=== PATIENT | female | born 1935 | race Caucasian/White ===

== ENCOUNTER 2022-07-25 15:23 | Inpatient (IN) | payer MEDICARE, OTHER ==
[~2022-07-25] VITALS: Ht 162.6 cm; Wt 68.0 kg
[~2022-07-25 15:23] MED LIST: HYDR-507 PO; METO-356 PO; SIMV-49 PO; ZOLP10TA2 PO
--- NOTE | 2022-07-25 15:42 | NUR ---
PT CAN NOT PROVIDE ANY INFORMATION ABOUT HER HOME MEDICATION AND DOSAGES.
[2022-07-25] MEDS ORDERED: IV NORMAL SALINE 1000 ML BAG IV ONE ×2 (15:45)
[2022-07-25 15:57] LABS: MEAN CORPUSCULAR HEMOGLOBIN 32.2 uug (24.7-32.8); PLATELET COUNT (AUTO) 292 K/uL (179-408)
[2022-07-25 16:04] LABS: CARBON DIOXIDE 27 mmol/L (21-32); CHLORIDE 102 mmol/L (98-107); CREATININE 1.6 mg/dL (0.6-1.3); GLUCOSE 96 mg/dL (74-106); POTASSIUM 4.9 mmol/L (3.5-5.1); UREA NITROGEN, BLOOD 24 mg/dL (7-18)
[2022-07-25 16:16] LABS: MAGNESIUM 2.2 mg/dL (1.8-2.4)
--- NOTE | 2022-07-25 19:25 | NUR ---
change of shift report from Anjali BEAULIEU
--- NOTE | 2022-07-25 20:20 | NUR ---
called for bed, patient will be transfered to TELE room 316
--- NOTE | 2022-07-25 20:39 | NUR ---
patient is able to walk to the restroom with steady gait
[2022-07-25] MEDS ORDERED: IV NS 1000 ML 1,000 ML IV PRN (20:45)
[2022-07-25] MEDS ORDERED: ACETAMINOPHEN 325 MG TABLET PO PRN (20:45)
[2022-07-25] MEDS ORDERED: MAGNESIUM HYDROXIDE 30 ML LIQUID UDC PO PRN (20:45)
[2022-07-25] MEDS ORDERED: REMEDY ESSENTIAL ZINC PASTE 113 GM TP PRN (20:45)
[2022-07-25] MEDS ORDERED: ONDANSETRON 4 MG/2 ML VIAL IV PRN (20:45)
--- NOTE | 2022-07-25 20:54 | NUR ---
report given to Nataliia BEAULIEU
--- NOTE | 2022-07-25 21:37 | NUR ---
Pt. admitted to TELE room 316 , under care of Bong STUDY COORDINATOR [employer] List completed Nataliia BEAULIEU aware of patient's arrival
--- NOTE | 2022-07-25 22:00 | NUR ---
Admitted to Telemetry with diagnosis of Syncope. AAO x 3. On room air. Noted a red bump on the back of the head. Denies any pain or discomfort. Ambulatory. Skin is intact. IV site on L AC 20 g intact and patent. Routine admission done. All needs attended. Call light within reach. Left bed in the lowest position. Safety precautions observed. Addendum: 07/26/22 at 0607 by WALLY WOODS RN SR on Tele during admission changed to Afib. aware.
[2022-07-25 22:20] VITALS: BP 177/78
[2022-07-26] VITALS: BP 176/64
[2022-07-26] MEDS ORDERED: hydrALAZINE HCL 20 MG/1 ML VIAL IV PRN
[2022-07-26 04:00] VITALS: BP 144/69
[2022-07-26 07:28] LABS: HEMATOCRIT 31.9 % (31.2-41.9); MEAN CORPUSCULAR HEMOGLOBIN 32.3 uug (24.7-32.8); MEAN CORPUSCULAR VOLUME 96.9 fL (75.5-95.3); PLATELET COUNT (AUTO) 166 K/uL (179-408)
[2022-07-26 07:36] LABS: CREATININE 1.3 mg/dL (0.6-1.3); MAGNESIUM 2.2 mg/dL (1.8-2.4); PHOSPHOROUS 3.1 mg/dL (2.5-4.9); POTASSIUM 4.2 mmol/L (3.5-5.1)
[2022-07-26] MEDS ORDERED: ENOXAPARIN SODIUM 30 MG/0.3 ML DISP.SYRIN SUBCUT SCH (09:00)
[2022-07-26 09:29] VITALS: BP_SYST 128; BP_SYST 135; BP_DIAS 65; BP_DIAS 66; BP_DIAS 87
[2022-07-26] MEDS ORDERED: FLUO20CA42 PO (10:07)
[2022-07-26] MEDS ORDERED: ARIP2TAB3 PO (10:07)
[2022-07-26] MEDS ORDERED: LISI10TA29 PO (10:07)
[2022-07-26] MEDS ORDERED: METO-357 PO (10:07)
[2022-07-26] MEDS ORDERED: ALLO100T PO (10:07)
[2022-07-26] MEDS ORDERED: ATOR20TA PO (10:52)
[2022-07-26 11:08] VITALS: BP 107/58
--- NOTE | 2022-07-26 12:04 | NUR ---
PT WILL BE DISCHARGE TODAY. FAMILY NOTIFIED. SON ASK FOR INFO REGARDING SNF/LONG TERM PLACEMENT, REFER SON TO CM. WILL F/U
--- NOTE | 2022-07-26 14:08 | NUR ---
PT WILL GO TO [facility]. GAVE REPORT TO LORENA BEAULIEU. 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
--- NOTE | 2022-07-26 16:33 | NUR ---
PT IS DISCHARGE. PT IS GOING TO [facility]. PT IS AMBULATORY. NO SOB OR DIZZINESS NOTED. 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 ALL BELONGINGS ACCOUNTED FOR. IV ACCESS REMOVE.
== END 2022-07-26 16:32 | DRG 640 ==
LOC: ER 15:23 → EDBD 15:23 → TELE3 19:00 → MERGE 19:00
PROVIDERS: ADMIT Nurse Practitioner Acute Care; ATTEND Nurse Practitioner Acute Care
DX: E86.0 Dehydration (principal); N17.0 Acute kidney failure with tubular necrosis; E78.5 Hyperlipidemia, unspecified; D64.9 Anemia, unspecified; Z20.822 Contact with and (suspected) exposure to COVID-19; W19.XXXA Unspecified fall, initial encounter; Y93.9 Activity, unspecified; Y92.009 Unspecified place in unspecified non-institutional (private) residence as the place of occurrence of the external cause; R53.1 Weakness; F03.90 Unspecified dementia, unspecified severity, without behavioral disturbance, psychotic disturbance, mood disturbance, and anxiety; I10 Essential (primary) hypertension
CPT/HCPCS: 36415; 70450; 71045; 83735; 84100; 84484; 85025; 93005; G0378; J0360; J1650; J7040

== ENCOUNTER 2023-03-16 16:12 | Emergency (ER) | payer MEDICARE, OTHER ==
[~2023-03-16] VITALS: Ht 160 cm; Wt 56.7 kg
[~2023-03-16 16:12] MED LIST changes: +ALLO100T PO; +ARIP2TAB3 PO; +ATOR20TA PO; +FLUO20CA42 PO; +LISI10TA29 PO; +METO-357 PO
[2023-03-16] MEDS ORDERED: LISI20TA30 PO (16:37)
--- NOTE | 2023-03-16 16:58 | NUR ---
seen and examined by
--- NOTE | 2023-03-16 17:02 | NUR ---
ct in process
[2023-03-16 17:04] LABS: *BILIRUBIN,URIN NEGATIVE (NEGATIVE); *BLOOD, URINE NEGATIVE (NEGATIVE); *CLARITY,URINE CLEAR (CLEAR); *COLOR,URINE YELLOW (YELLOW); *KETONES,URINE NEGATIVE (NEGATIVE); *UROBILINOGEN,URINE 0.2 E.U./dl (NORMAL); LEUKOCYTE ESTERASE ,URINE 2+ (NEGATIVE); NITRITE, URINE NEGATIVE (NEGATIVE); PH,URINE 5.5 (5.0-8.0); UGLUCOSE NEGATIVE (NEGATIVE)
[2023-03-16 17:09] LABS: HEMATOCRIT 31.3 % (31.2-41.9); MEAN CORPUSCULAR HEMOGLOBIN 31.1 uug (24.7-32.8); MEAN CORPUSCULAR VOLUME 96.4 fL (75.5-95.3); PLATELET COUNT (AUTO) 269 K/uL (179-408)
[2023-03-16 17:26] LABS: ALANINE AMINOTRANSFERASE 42 U/L (14-59); ALKALINE PHOSPHATASE 143 U/L (50-136); ASPARTATE AMINOTRANSFERASE 22 U/L (15-37); BILIRUBIN,DIRECT 0.1 mg/dL (0.0-0.2); BILIRUBIN,TOTAL 0.2 mg/dL (0.2-1.0); CARBON DIOXIDE 29 mmol/L (21-32); CHLORIDE 103 mmol/L (98-107); CREATININE 1.4 mg/dL (0.6-1.3); GLUCOSE 135 mg/dL (74-106); POTASSIUM 4.3 mmol/L (3.5-5.1); TOTAL PROTEIN, SERUM 7.1 g/dL (6.4-8.2); UREA NITROGEN, BLOOD 26 mg/dL (7-18)
[2023-03-16] MEDS ORDERED: HYDROCODONE/APAP 5-325MG TABLET PO ONE (17:30)
[2023-03-16] MEDS ORDERED: HYDROCODONE/APAP 5-325MG TABLET ONE (17:42)
[2023-03-16] MEDS ORDERED: IV NORMAL SALINE 1000 ML BAG IV ONE (17:45)
[2023-03-16] MEDS ORDERED: CEphaleXIN 500 MG CAPSULE PO ONE (17:45)
[2023-03-16] MEDS ORDERED: CEphaleXIN 500 MG CAPSULE ONE (18:05)
[2023-03-16] MEDS ORDERED: CYCL5TAB PO (18:28)
[2023-03-16] MEDS ORDERED: CEPH500T PO (18:28)
--- NOTE | 2023-03-16 19:15 | NUR ---
Pt is noted in bed responsive but forgetful due to a history off Dementia as report is received from the off going nurse that was brought in by son C/O Left Neck/Trapezius pain that started couples hours ago with no specipic Trauma. Pt care continue as awaits results.
[2023-03-16 19:17] LABS: MAGNESIUM 2.2 mg/dL (1.8-2.4)
[2023-03-16 19:41] LABS: BACTERIA,URINE FEW /HPF (NONE SEEN); RBC,URINE 0-3 /HPF (0-3); SQUAMOUS EPITHELIAL CELL,UR MODERATE /HPF (NONE SEEN)
--- NOTE | 2023-03-16 19:42 | NUR ---
Pt is noted off the unit as she is been discharge to home with son by her side as all discharge instructions given .
[2023-03-16 19:47] VITALS: BP 136/72
== END 2023-03-16 19:48 | disposition home or self-care (01) ==
LOC: ER 16:12
DX: R53.1 Weakness (principal); M62.838 Other muscle spasm; R51.9 Headache, unspecified; R00.1 Bradycardia, unspecified; N39.0 Urinary tract infection, site not specified; R07.89 Other chest pain; Z79.899 Other long term (current) drug therapy
CPT/HCPCS: 99285; 70450; 96360; 71045; 96361; 80076; 80048; 81001; 82607; 83735; 85025; 84484; 36415; 93005; 72125; J7040; A4663

== ENCOUNTER 2023-05-14 10:01 | Inpatient (IN) | payer MEDICARE, OTHER ==
[~2023-05-14] VITALS: Ht 162.6 cm; Wt 68.3 kg
[~2023-05-14 10:01] MED LIST changes: +CEPH500T PO; +CYCL5TAB PO; -HYDR-507 PO; -LISI10TA29 PO; +LISI20TA30 PO; -METO-356 PO; -SIMV-49 PO
[2023-05-14] MEDS ORDERED: TDAP DIPH,PERTUSS,TET VAC/PF 0.5 ML DISP.SYRIN IM ONE ×2 (10:45→11:06)
[2023-05-14 10:55] LABS: BASOPHILS # (AUTO) 0.1 K/UL (0.0-0.2); BASOPHILS % (AUTO) 0.4 % (0.0-2.0); EOSINOPHILS # (AUTO) 0.1 K/uL (0.0-0.7); EOSINOPHILS % (AUTO) 0.5 % (0.0-7.0); HEMOGLOBIN 9.6 g/dL (10.9-14.3); LYMPHOCYTES # (AUTO) 1.5 K/uL (0.8-4.8); LYMPHOCYTES % (AUTO) 11.8 % (20.5-51.5); MEAN CORPUSCULAR HEMOGLOBIN 30.9 uug (24.7-32.8); MEAN CORPUSCULAR HGB CONC 32 g/dL (32.3-35.6); MEAN CORPUSCULAR VOLUME 96.1 fL (75.5-95.3); MONOCYTES # (AUTO) 0.7 K/uL (0.1-1.30); MONOCYTES % (AUTO) 5.3 % (0.0-11.0); NEUTROPHILS # (AUTO) 10.2 K/uL (1.8-8.9); PLATELET COUNT (AUTO) 264 K/uL (179-408); RED BLOOD CELL COUNT(AUTO) 3.12 MIL/uL (3.63-4.92); RED CELL DISTRIBUTION WIDTH 15.9 % (12.3-17.7); WHITE BLOOD COUNT (AUTO) 12.4 K/uL (3.8-11.8)
[2023-05-14 11:11] LABS: CALCIUM 9.1 mg/dL (8.5-10.1); CARBON DIOXIDE 28 mmol/L (21-32); CHLORIDE 104 mmol/L (98-107); CREATININE 1.8 mg/dL (0.6-1.3); GLUCOSE 118 mg/dL (74-106); POTASSIUM 4.6 mmol/L (3.5-5.1); SODIUM SERUM 140 mmol/L (136-145); UREA NITROGEN, BLOOD 39 mg/dL (7-18)
[2023-05-14 11:16] LABS: DIFFERENTIAL COMMENT 1
[2023-05-14 11:23] LABS: ALANINE AMINOTRANSFERASE 16 U/L (14-59); ALBUMIN 3.2 g/dL (3.4-5.0); ALKALINE PHOSPHATASE 73 U/L (50-136); ASPARTATE AMINOTRANSFERASE 14 U/L (15-37); BILIRUBIN,DIRECT 0.1 mg/dL (0.0-0.2); BILIRUBIN,TOTAL 0.4 mg/dL (0.2-1.0); NT-PRO BNP 2114 pg/mL (0-125); TOTAL PROTEIN, SERUM 7.4 g/dL (6.4-8.2)
[2023-05-14] MEDS ORDERED: IV NORMAL SALINE 1000 ML BAG IV ONE (11:45)
[2023-05-14 12:35] LABS: *BILIRUBIN,URIN NEGATIVE (NEGATIVE); *BLOOD, URINE NEGATIVE (NEGATIVE); *CLARITY,URINE CLEAR (CLEAR); *COLOR,URINE YELLOW (YELLOW); *KETONES,URINE NEGATIVE (NEGATIVE); *PROTEIN,URINE NEGATIVE (NEGATIVE); *UROBILINOGEN,URINE 0.2 E.U./dl (NORMAL); LEUKOCYTE ESTERASE ,URINE TRACE (NEGATIVE); NITRITE, URINE NEGATIVE (NEGATIVE); UGLUCOSE NEGATIVE (NEGATIVE)
[2023-05-14] MEDS ORDERED: LISI10TA29 PO (12:47)
[2023-05-14 13:56] LABS: BACTERIA,URINE FEW /HPF (NONE SEEN); RBC,URINE 0-3 /HPF (0-3); SQUAMOUS EPITHELIAL CELL,UR MODERATE /HPF (NONE SEEN)
[2023-05-14 14:00] VITALS: BP 164/69; TEMP 99; O2SAT 99
[2023-05-14] MEDS ORDERED: Medication Not On Formulary EA (Zolpidem Tartrate (Ambien) 10 MG) PO PRN (14:15)
[2023-05-14] MEDS: FLUOXETINE HCL 20 MG CAPSULE PO SCH ×2 (14:26→14:29)
[2023-05-14] MEDS: METOPROLOL SUCCINATE XL 50 MG TAB.SR.24H PO SCH ×2 (14:27→14:30)
[2023-05-14] MEDS: ALLOPURINOL 100 MG TABLET PO SCH ×2 (14:28→14:30)
[2023-05-14] MEDS: ARIPIPRAZOLE 2 MG TABLET PO SCH (15:33)
[2023-05-14] MEDS ORDERED: ONDANSETRON 4 MG/2 ML VIAL IV PRN (17:30)
[2023-05-14] MEDS ORDERED: TEMAZEPAM 15 MG CAPSULE PO PRN (17:30)
[2023-05-14] MEDS ORDERED: TEMAZEPAM 7.5 MG CAPSULE PO PRN (18:30)
[2023-05-14] MEDS: DOCUSATE SODIUM 100 MG CAPSULE PO SCH (20:17)
[2023-05-14] MEDS: ATORVASTATIN 20 MG TABLET PO SCH (20:17)
[2023-05-14 20:45] VITALS: BP 118/59; TEMP 98.6; O2SAT 95
[2023-05-14] MEDS ORDERED: DOCUSATE SODIUM 250 MG CAPSULE PO SCH (21:00)
[2023-05-14 21:10] VITALS: BP 118/59; TEMP 98.6; O2SAT 95
[2023-05-14] MEDS ORDERED: CEFTRIAXONE /D5W 50ML IVPB **ER PYXIS IV ONE (22:03)
[2023-05-14] MEDS: CEFTRIAXONE 1 G in IV DEXTROSE 5% 50 ML IV SCH (22:08)
[2023-05-14] MEDS: ZOLPIDEM 5 MG TABLET PO PRN (22:52)
[2023-05-14 23:55] VITALS: BP 135/69; TEMP 98.5; O2SAT 95
[2023-05-15] VITALS (7 sets, daily range): BP systolic 137–158; BP diastolic 55–72; TEMP 97.8–98.9; O2SAT 95–100
[2023-05-15] MEDS: PANTOPRAZOLE SODIUM 40 MG TABLET.DR PO SCH ×2 (06:16→06:30)
[2023-05-15 06:32] LABS: BASOPHILS % (AUTO) 0.3 % (0.0-2.0); EOSINOPHILS # (AUTO) 0.2 K/uL (0.0-0.7); EOSINOPHILS % (AUTO) 1.9 % (0.0-7.0); HEMATOCRIT 28.9 % (31.2-41.9); HEMOGLOBIN 9.5 g/dL (10.9-14.3); LYMPHOCYTES # (AUTO) 2.7 K/uL (0.8-4.8); LYMPHOCYTES % (AUTO) 23.8 % (20.5-51.5); MEAN CORPUSCULAR HEMOGLOBIN 31.3 uug (24.7-32.8); MEAN CORPUSCULAR HGB CONC 33 g/dL (32.3-35.6); MEAN CORPUSCULAR VOLUME 95.1 fL (75.5-95.3); MONOCYTES # (AUTO) 0.7 K/uL (0.1-1.30); MONOCYTES % (AUTO) 6.5 % (0.0-11.0); NEUTROPHILS # (AUTO) 7.6 K/uL (1.8-8.9); NEUTROPHILS % (AUTO) 67.5 % (38.5-71.5); PLATELET COUNT (AUTO) 237 K/uL (179-408); RED BLOOD CELL COUNT(AUTO) 3.04 MIL/uL (3.63-4.92); RED CELL DISTRIBUTION WIDTH 15.6 % (12.3-17.7); WHITE BLOOD COUNT (AUTO) 11.2 K/uL (3.8-11.8)
[2023-05-15 06:41] LABS: DIFFERENTIAL COMMENT 1
[2023-05-15 06:52] LABS: THYROID STIMULATING HORMONE 1.281 mIU/mL (0.358-3.740)
[2023-05-15 07:10] LABS: ALANINE AMINOTRANSFERASE 10 U/L (14-59); ALBUMIN 2.9 g/dL (3.4-5.0); ALKALINE PHOSPHATASE 66 U/L (50-136); ASPARTATE AMINOTRANSFERASE 15 U/L (15-37); BILIRUBIN,TOTAL 0.4 mg/dL (0.2-1.0); CALCIUM 9.2 mg/dL (8.5-10.1); CARBON DIOXIDE 29 mmol/L (21-32); CHLORIDE 105 mmol/L (98-107); CREATININE 1.5 mg/dL (0.6-1.3); GLUCOSE 99 mg/dL (74-106); MAGNESIUM 2.5 mg/dL (1.8-2.4); PHOSPHOROUS 3.1 mg/dL (2.5-4.9); POTASSIUM 4.4 mmol/L (3.5-5.1); SODIUM SERUM 140 mmol/L (136-145); TOTAL PROTEIN, SERUM 6.6 g/dL (6.4-8.2); UREA NITROGEN, BLOOD 33 mg/dL (7-18)
[2023-05-15 07:35] LABS: CHOLESTEROL 193 mg/dL (<200); HDL CHOLESTEROL 38 mg/dL (40-60); TRIGLYCERIDES 107 MG/DL (30-150)
[2023-05-15] MEDS ORDERED: IV NS 1000 ML 1,000 ML IV PRN (08:15)
[2023-05-15 08:24] LABS: CREATINE KINASE, TOTAL 77 U/L (26-192)
[2023-05-15] MEDS: FLUOXETINE HCL 20 MG CAPSULE PO SCH (08:58)
[2023-05-15] MEDS: ARIPIPRAZOLE 2 MG TABLET PO SCH (08:58)
[2023-05-15] MEDS: ALLOPURINOL 100 MG TABLET PO SCH (08:58)
[2023-05-15] MEDS: ASPIRIN EC 81 MG TABLET.DR PO SCH (08:59)
[2023-05-15] MEDS: METOPROLOL SUCCINATE XL 50 MG TAB.SR.24H PO SCH (08:59)
[2023-05-15 09:30] LABS: IRON, SERUM 34 ug/dL (50-175)
[2023-05-15] MEDS: ZOLPIDEM 5 MG TABLET PO PRN (21:07)
[2023-05-15] MEDS: DOCUSATE SODIUM 100 MG CAPSULE PO SCH (21:07)
[2023-05-15] MEDS: CEFTRIAXONE 1 G in IV DEXTROSE 5% 50 ML IV SCH (21:07)
[2023-05-15] MEDS: ATORVASTATIN 20 MG TABLET PO SCH (21:07)
[2023-05-16 04:00] VITALS: BP 136/62; TEMP 97.9; O2SAT 94
[2023-05-16] MEDS: PANTOPRAZOLE SODIUM 40 MG TABLET.DR PO SCH (06:05)
[2023-05-16 06:44] LABS: BASOPHILS % (AUTO) 0.3 % (0.0-2.0); EOSINOPHILS # (AUTO) 0.2 K/uL (0.0-0.7); EOSINOPHILS % (AUTO) 1.6 % (0.0-7.0); HEMATOCRIT 28.8 % (31.2-41.9); HEMOGLOBIN 9.4 g/dL (10.9-14.3); LYMPHOCYTES # (AUTO) 2.4 K/uL (0.8-4.8); LYMPHOCYTES % (AUTO) 17.4 % (20.5-51.5); MEAN CORPUSCULAR HEMOGLOBIN 31.2 uug (24.7-32.8); MEAN CORPUSCULAR HGB CONC 33 g/dL (32.3-35.6); MEAN CORPUSCULAR VOLUME 95.8 fL (75.5-95.3); MONOCYTES # (AUTO) 0.9 K/uL (0.1-1.30); MONOCYTES % (AUTO) 6.6 % (0.0-11.0); NEUTROPHILS # (AUTO) 10.1 K/uL (1.8-8.9); NEUTROPHILS % (AUTO) 74.1 % (38.5-71.5); PLATELET COUNT (AUTO) 221 K/uL (179-408); RED BLOOD CELL COUNT(AUTO) 3.01 MIL/uL (3.63-4.92); RED CELL DISTRIBUTION WIDTH 15.3 % (12.3-17.7); WHITE BLOOD COUNT (AUTO) 13.6 K/uL (3.8-11.8)
[2023-05-16 06:53] LABS: DIFFERENTIAL COMMENT 1
[2023-05-16 07:23] LABS: ALANINE AMINOTRANSFERASE 8 U/L (14-59); ALBUMIN 2.7 g/dL (3.4-5.0); ALKALINE PHOSPHATASE 70 U/L (50-136); ASPARTATE AMINOTRANSFERASE 9 U/L (15-37); BILIRUBIN,TOTAL 0.3 mg/dL (0.2-1.0); CALCIUM 8.4 mg/dL (8.5-10.1); CARBON DIOXIDE 24 mmol/L (21-32); CHLORIDE 105 mmol/L (98-107); CREATININE 1.4 mg/dL (0.6-1.3); GLUCOSE 108 mg/dL (74-106); MAGNESIUM 2.2 mg/dL (1.8-2.4); PHOSPHOROUS 2.7 mg/dL (2.5-4.9); POTASSIUM 4.1 mmol/L (3.5-5.1); SODIUM SERUM 137 mmol/L (136-145); TOTAL PROTEIN, SERUM 6.7 g/dL (6.4-8.2); UREA NITROGEN, BLOOD 20 mg/dL (7-18)
[2023-05-16 08:24] VITALS: BP 131/52; TEMP 97.8; O2SAT 96
[2023-05-16] MEDS: METOPROLOL SUCCINATE XL 50 MG TAB.SR.24H PO SCH (08:41)
[2023-05-16] MEDS: ALLOPURINOL 100 MG TABLET PO SCH (08:41)
[2023-05-16] MEDS: ASPIRIN EC 81 MG TABLET.DR PO SCH (08:41)
[2023-05-16] MEDS: FLUOXETINE HCL 20 MG CAPSULE PO SCH (08:41)
[2023-05-16] MEDS: ARIPIPRAZOLE 2 MG TABLET PO SCH (08:42)
[2023-05-16 11:00] VITALS: BP 125/53; TEMP 98.4; O2SAT 94
[2023-05-16] MEDS ORDERED: FUROSEMIDE 20 MG/2 ML VIAL IV ONE (12:30)
[2023-05-16] MEDS: ACETAMINOPHEN 325 MG TABLET PO PRN (12:52)
[2023-05-16 13:37] LABS: *BILIRUBIN,URIN NEGATIVE (NEGATIVE); *BLOOD, URINE NEGATIVE (NEGATIVE); *CLARITY,URINE CLEAR (CLEAR); *COLOR,URINE YELLOW (YELLOW); *KETONES,URINE NEGATIVE (NEGATIVE); *PROTEIN,URINE NEGATIVE (NEGATIVE); *UROBILINOGEN,URINE 0.2 E.U./dl (NORMAL); LEUKOCYTE ESTERASE ,URINE TRACE (NEGATIVE); NITRITE, URINE NEGATIVE (NEGATIVE); UGLUCOSE NEGATIVE (NEGATIVE)
[2023-05-16 13:39] LABS: *CREATININE,URINE 62.3 mg/dL (30-125); *URINE TOTAL PROTEIN RANDOM 14.5 mg/dL (<150/24HR)
[2023-05-16 13:59] LABS: BACTERIA,URINE FEW /HPF (NONE SEEN); SQUAMOUS EPITHELIAL CELL,UR FEW /HPF (NONE SEEN); WBC,URINE 0-3 /HPF (0-3)
[2023-05-16 15:14] VITALS: BP 126/54; TEMP 98.2; O2SAT 95
[2023-05-16 20:00] VITALS: BP 134/50; TEMP 98; O2SAT 96
[2023-05-16] MEDS: ATORVASTATIN 20 MG TABLET PO SCH (21:45)
[2023-05-16] MEDS: CEFTRIAXONE 1 G in IV DEXTROSE 5% 50 ML IV SCH (21:46)
[2023-05-16] MEDS: DOCUSATE SODIUM 100 MG CAPSULE PO SCH (21:46)
[2023-05-17 04:00] VITALS: BP 150/61; TEMP 98.2; O2SAT 96
[2023-05-17] MEDS: PANTOPRAZOLE SODIUM 40 MG TABLET.DR PO SCH (06:51)
[2023-05-17 07:37] LABS: BASOPHILS # (AUTO) 0.1 K/UL (0.0-0.2); BASOPHILS % (AUTO) 0.9 % (0.0-2.0); EOSINOPHILS # (AUTO) 0.3 K/uL (0.0-0.7); EOSINOPHILS % (AUTO) 2.9 % (0.0-7.0); HEMATOCRIT 29.3 % (31.2-41.9); HEMOGLOBIN 9.6 g/dL (10.9-14.3); LYMPHOCYTES # (AUTO) 2.8 K/uL (0.8-4.8); LYMPHOCYTES % (AUTO) 26.6 % (20.5-51.5); MEAN CORPUSCULAR HEMOGLOBIN 31.4 uug (24.7-32.8); MEAN CORPUSCULAR HGB CONC 33 g/dL (32.3-35.6); MONOCYTES # (AUTO) 0.6 K/uL (0.1-1.30); NEUTROPHILS # (AUTO) 6.8 K/uL (1.8-8.9); NEUTROPHILS % (AUTO) 63.6 % (38.5-71.5); PLATELET COUNT (AUTO) 264 K/uL (179-408); RED BLOOD CELL COUNT(AUTO) 3.05 MIL/uL (3.63-4.92); RED CELL DISTRIBUTION WIDTH 15.6 % (12.3-17.7); WHITE BLOOD COUNT (AUTO) 10.7 K/uL (3.8-11.8)
[2023-05-17 08:19] LABS: CALCIUM 8.7 mg/dL (8.5-10.1); CARBON DIOXIDE 26 mmol/L (21-32); CHLORIDE 105 mmol/L (98-107); CREATININE 1.6 mg/dL (0.6-1.3); GLUCOSE 96 mg/dL (74-106); MAGNESIUM 2.1 mg/dL (1.8-2.4); PHOSPHOROUS 3.1 mg/dL (2.5-4.9); POTASSIUM 3.5 mmol/L (3.5-5.1); SODIUM SERUM 139 mmol/L (136-145); UREA NITROGEN, BLOOD 19 mg/dL (7-18)
[2023-05-17 08:27] LABS: DIFFERENTIAL COMMENT 1
[2023-05-17 08:39] VITALS: BP 191/82; TEMP 95; O2SAT 96
[2023-05-17] MEDS: ARIPIPRAZOLE 2 MG TABLET PO SCH (08:50)
[2023-05-17] MEDS: ALLOPURINOL 100 MG TABLET PO SCH (08:50)
[2023-05-17] MEDS: FLUOXETINE HCL 20 MG CAPSULE PO SCH (08:50)
[2023-05-17] MEDS: ASPIRIN EC 81 MG TABLET.DR PO SCH (08:51)
[2023-05-17] MEDS: METOPROLOL SUCCINATE XL 50 MG TAB.SR.24H PO SCH (08:51)
[2023-05-17] MEDS ORDERED: NEPRO (VANILLA) 237 ML CAN PO SCH (09:00)
[2023-05-17] MEDS ORDERED: hydrALAZINE HCL 25 MG TABLET PO PRN (09:30)
[2023-05-17] MEDS: ACETAMINOPHEN 325 MG TABLET PO PRN (10:58)
[2023-05-17 11:32] VITALS: BP 150/62; TEMP 98; O2SAT 99
[2023-05-17] MEDS ORDERED: AMLODIPINE 5 MG TABLET PO SCH (12:30)
[2023-05-17 12:40] VITALS: BP 129/43
[2023-05-17] MEDS ORDERED: HYDR-894 PO (12:55)
[2023-05-17] MEDS ORDERED: Nepro PO (12:55)
[2023-05-17] MEDS ORDERED: AMLO-212 PO (12:55)
[2023-05-17] MEDS ORDERED: ACET325T53 PO (12:55)
[2023-05-17] MEDS ORDERED: DOCU-141 PO (12:55)
[2023-05-17] MEDS ORDERED: TEMA7.5C PO (12:55)
[2023-05-17] MEDS ORDERED: ASPI-618 PO (12:55)
[2023-05-17] MEDS ORDERED: MULT-1045 PO (12:55)
[2023-05-17] MEDS ORDERED: PANT40TA49 PO (12:55)
[2023-05-17 16:10] VITALS: O2SAT 98
== END 2023-05-17 17:30 | DRG 73 ==
LOC: ER 10:01 → MEDSURG3 13:35 → TELE3 19:02 → MEDSURG3 05-15 10:03
PROVIDERS: ADMIT Internal Medicine; ATTEND Internal Medicine
PROC: 0HQ3XZZ Repair Left Ear Skin, External Approach (ICD-10-PCS; principal; 2023-05-14)
DX: G90.8 Other disorders of autonomic nervous system (principal); N17.0 Acute kidney failure with tubular necrosis; D68.59 Other primary thrombophilia; N39.0 Urinary tract infection, site not specified; F01.53 Vascular dementia, unspecified severity, with mood disturbance; S09.90XA Unspecified injury of head, initial encounter; S20.211A Contusion of right front wall of thorax, initial encounter; S01.312A Laceration without foreign body of left ear, initial encounter; W18.30XA Fall on same level, unspecified, initial encounter; Y92.039 Unspecified place in apartment as the place of occurrence of the external cause; E86.0 Dehydration; R29.6 Repeated falls; D75.89 Other specified diseases of blood and blood-forming organs; D64.9 Anemia, unspecified; Z74.09 Other reduced mobility; I70.0 Atherosclerosis of aorta; I13.10 Hypertensive heart and chronic kidney disease without heart failure, with stage 1 through stage 4 chronic kidney disease, or unspecified chronic kidney disease; N18.2 Chronic kidney disease, stage 2 (mild); M89.8X9 Other specified disorders of bone, unspecified site; F32.A Depression, unspecified; Z87.891 Personal history of nicotine dependence; I49.3 Ventricular premature depolarization; I70.8 Atherosclerosis of other arteries; I35.8 Other nonrheumatic aortic valve disorders; J44.9 Chronic obstructive pulmonary disease, unspecified; I25.10 Atherosclerotic heart disease of native coronary artery without angina pectoris; Z95.5 Presence of coronary angioplasty implant and graft; M50.30 Other cervical disc degeneration, unspecified cervical region; N83.202 Unspecified ovarian cyst, left side; M10.9 Gout, unspecified; K86.89 Other specified diseases of pancreas; K57.90 Diverticulosis of intestine, part unspecified, without perforation or abscess without bleeding; K44.9 Diaphragmatic hernia without obstruction or gangrene; Z82.49 Family history of ischemic heart disease and other diseases of the circulatory system; Z79.899 Other long term (current) drug therapy; Z90.710 Acquired absence of both cervix and uterus; Z90.49 Acquired absence of other specified parts of digestive tract; Z98.42 Cataract extraction status, left eye; Z98.41 Cataract extraction status, right eye
CPT/HCPCS: 36415; 70450; 71045; 71250; 72125; 83550; 83605; 83735; 84100; 84300; 84443; 84484; 85025; 85730; 87040; 90715; 93005; 93307; A4663; G0378; J0696; J1940; J7040; J8499